=== PATIENT | female | born 1955 | race African-American/Black ===

== ENCOUNTER → 2016-09-10 | Outpatient (CLI) | payer BC, OTHER | LOC: LAB.NP 10:25 | PROVIDERS: ATTEND Family Medicine | DX: I10 Essential (primary) hypertension (principal); N39.0 Urinary tract infection, site not specified ==

== ENCOUNTER → 2019-09-14 | Outpatient (CLI) | payer BC | LOC: GMA MATASK 14:37 | PROVIDERS: ATTEND Family Medicine | DX: I10 Essential (primary) hypertension (principal); E11.9 Type 2 diabetes mellitus without complications ==

== ENCOUNTER → 2020-10-10 | Outpatient (CLI) | payer BC | LOC: GMA MATASK 13:13 | PROVIDERS: ATTEND Family Medicine | DX: E03.9 Hypothyroidism, unspecified (principal); I10 Essential (primary) hypertension; E11.9 Type 2 diabetes mellitus without complications ==